=== PATIENT | female | born 1945 | race Caucasian/White ===

== ENCOUNTER → 2018-06-24 10:22 | Outpatient (CLI) | payer MEDICARE, SELFPAY ==
--- NOTE | 2018-06-24 | DI.MG.S_ITS ---
BILATERAL DIGITAL SCREENING MAMMOGRAM 3D/2D WITH CAD: 06/24/2018 CLINICAL: Routine screening. Comparison is made to exams dated: 10/20/2015 mammogram, 06/22/2013 mammogram, and 05/18/2011 mammogram - [facility]. There are scattered fibroglandular elements in both breasts. Current study was also evaluated with a Computer Aided Detection (CAD) system. No significant masses, calcifications, or other findings are seen in either breast. There has been no significant interval change. IMPRESSION: NEGATIVE There is no mammographic evidence of malignancy. A 1 year screening mammogram is recommended. This exam was interpreted at Station ID: [id number]. NOTE: For mammograms, a report in lay terms will be sent to the patient. Approximately 15% of breast malignancies will not be visualized mammographically. In the management of a palpable breast mass, a negative mammogram must not discourage biopsy of a clinically suspicious lesion. Electronically Signed By: Christiano viveros/hieu:06/26/2018 10:47:33 letter sent: Normal Exam ACR BI-RADS Category 1: Negative 3341F
[2018-06-24 11:25] LABS: Alanine Aminotransferase 29 IU/L (9-52); Aspartate Aminotransferase 24 IU/L (14-36); BUN Creatinine Ratio 23.3 (6-22); Blood Urea Nitrogen 21 mg/dL (7-17); Calcium 10.1 mg/dL (8.4-10.2); Carbon Dioxide 29 mmol/L (22-32); Chloride 101 mmol/L (98-107); Cholesterol 217 mg/dL (140-199); Estimated Glomerular Filt Rate > 60.0 mL/min (>60); Glucose 120 mg/dL (80-110); HDL Cholesterol 84 mg/dL (40-60); HEMOLYSIS < 15 (0-50); LDL Cholesterol Calculated 114 mg/dL (<100); Potassium 4.1 mmol/L (3.4-5.1); Sodium 142 mmol/L (137-145); Triglycerides 97 mg/dL (35-150)
[2018-06-24 11:54] LABS: TSH w/ Reflex to FT4 2.38 uIU/mL (0.47-4.68)
== END ==
PROVIDERS: Family Provider Internal Medicine; PCP Internal Medicine; Visit Provider Internal Medicine
DX: Z12.31 Encounter for screening mammogram for malignant neoplasm of breast (principal); E78.00 Pure hypercholesterolemia, unspecified; E03.9 Hypothyroidism, unspecified; I10 Essential (primary) hypertension
CPT/HCPCS: 36415; 77063; 77067; 80048; 80061; 84443; 84450; 84460

== ENCOUNTER → 2018-10-13 14:00 | Outpatient (CLI) | payer MEDICARE, BC, SELFPAY ==
--- NOTE | 2018-10-13 | DI.MRI.S_ITS ---
PROCEDURE: MR LUMBAR SPINE WO CON INDICATIONS: Low back pain TECHNIQUE: Noncontrast sagittal T1 spin echo and T2 fast echo, coronal T2, sagittal STIR, axial T1 and T2 fast spin echo through the lumbar spine. COMPARISON: None. FINDINGS: Image quality: Excellent. Alignment and Curvature: No plain films are available for comparison, for numbering purposes. Thus, for the purposes of this examination, 5 lumbar type vertebral bodies will be presumed, as denoted on the montage panel. This should be confirmed and correlated with plain films, prior to any lumbar spinal intervention. There is severe leftward curvature of the upper lumbar spine. There is mild, grade 1 retrolisthesis of L5 on S1. Bone Marrow: Marrow is of normal overall signal. No acute vertebral body compression fractures. There is mild reactive signal within the endplates adjacent to the L2-L3, L3-L4, L4-L5, and L5-S1 intervertebral discs. Spinal Cord: The visualized cord is normal in size and signal intensity. Conus medullaris terminates at the lower L1 level. Paraspinous Soft Tissues: No paravertebral masses. L1-L2: Moderate disc desiccation. Mild diffuse disc bulge with superimposed small right paracentral protrusion. Mild facet and ligament flavum hypertrophy. Mild canal stenosis. Mild right foraminal stenosis. No left foraminal stenosis. L2-L3: Moderate disc height loss and desiccation. Mild diffuse disc bulge. Mild facet and ligamentum hypertrophy. Moderate epidural lipomatosis. Moderate to severe canal stenosis. Mild left and moderate right subarticular foraminal stenosis. L3-L4: Mild disc height loss and desiccation. Mild diffuse disc bulge. Mild facet hypertrophy bilaterally. Moderate canal stenosis. Moderate left and mild right foraminal stenosis. L4-L5: Moderate disc desiccation. Mild diffuse disc bulge with superimposed broad-based left far lateral protrusion. Mild facet hypertrophy. Mild canal stenosis. Mild right and moderate left subarticular foraminal stenosis. L5-S1: Moderate disc desiccation. Mild diffuse disc bulge. Moderate bilateral facet hypertrophy. Mild canal stenosis. Moderate right and severe left subarticular foraminal stenosis. Flattening of the left L5 nerve root. IMPRESSION: 1. 5 lumbar type vertebral bodies were presumed for the current report. Plain films of the lumbar spine are recommended for confirmation, prior to any lumbar spinal intervention. 2. Multilevel degenerative disc and facet disease, as well as ligamentum flavum hypertrophy and epidural lipomatosis. 3. Multilevel canal stenoses, worst at L2-L3, where there is moderate to severe canal stenosis. Moderate canal stenosis at L3-L4. 4. Multilevel foraminal stenoses, worse on the left at L5-S1 where there is associated L5 nerve root flattening. Recommend correlation with clinical symptoms to ascertain relevance of this finding. 5. Severe leftward curvature of the upper lumbar spine. Dictated by: Duy Duncan M.D. on 10/13/2018 at 15:19 Approved by: Duy Duncan M.D. on 10/13/2018 at 15:26
--- NOTE | 2019-01-24 | DI.CT.S_ITS ---
PROCEDURE: CT LUMBAR SPINE W CON COMPARISON: Thoracic spine CT myelography same date reviewed.. INDICATIONS: IDIOPATHIC SCOLIOSIS FINDINGS: There is a calculated 50.4? scoliosis convex leftward centered at the thoracolumbar junction/upper lumbar margin. This was measured during thoracic spine evaluation at 53?, within measurement variability. The injected intrathecal contrast traverses cephalad from the lumbosacral spine into the thoracic area. No compression fracture is found. Along the inner curvature (right side) of the barium dominant scoliotic distortion there is osteophytic spurring. Facet osteoarthritis also is greater along the inner curvature of from T12-L3. Asymmetric right-sided foraminal stenosis is present through these areas but no disc bulge or herniation is found. IMPRESSION: The scoliosis present is measured between 50 and 53? 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 Nerve root impingement along this area of the right side of the lumbosacral spine would be expected. No disc bulge or herniation is seen. No morphologic anomaly or soft tissue mass is identified as cause of the scoliosis present. Dictated by: Mata Ley M.D. on 01/24/2019 at 17:27 Approved by: Mata Ley M.D. on 01/24/2019 at 17:30
--- NOTE | 2019-01-24 11:15 | DI.CT.S_ITS ---
PROCEDURE: CT THORACIC SPINE W CON INDICATIONS: IDIOPATHIC SCOLIOSIS TECHNIQUE: After the administration of 10 mL intrathecal contrast, 3 mm thick sections acquired through the region of interest in the thoracic spine. Sagittal and coronal reformats were then constructed. For radiation dose reduction, the following was used: automated exposure control. COMPARISON: None. FINDINGS: Image quality: Excellent. Bones: There is 53 degree convex leftward scoliosis centered at the L1-2 level of the lumbosacral spine, and relatively minor compensatory convex rightward scoliosis at the lower third of the thoracic spine. No significant compression fractures found and the degree of anterior mild wedging of several of the low thoracic vertebral bodies is within the range of normal variation/Scheuermann's kyphosis. There is a inferior displacement of the upper endplate of L1, possibly an osteoporotic superior endplate impaction fracture from the past. Spinal cord: The spinal canal morphology results in rightward and leftward deviation of the cord within the spinal canal at the thoracolumbar junction but more superiorly it is midline given the absence of significant convex rightward scoliosis. Expected degenerative osteophytic spurring from endplates is seen along the inner curvature of the scoliotic distortion at the low thoracic and upper lumbosacral spine. Soft tissues: No soft tissue inflammation is seen. No mass is identified. IMPRESSION: The clinical diagnosis provided is idiopathic scoliosis, and not underlying neoplasm or spinal morphologic anomaly is seen that would explain the scoliosis seen. There is 53? convex leftward scoliosis centered at the upper lumbosacral spine/thoracolumbar junction but above that level the thoracic spine is nearly free of scoliotic distortion. There is mild to moderate degenerative osteophytic spurring as expected along the inner curvature of the area of maximal scoliosis. Note is made of a small area of right lateral posterior disc bulging at the thoracolumbar junction but this is not associated with focal nerve root impingement or evidence of disc herniation. Dictated by: Mata Ley M.D. on 01/24/2019 at 17:15 Approved by: Mata Ley M.D. on 01/24/2019 at 17:24
== END ==
PROVIDERS: PCP Internal Medicine; Visit Provider Orthopaedic Surgery
DX: M54.5 Low back pain (principal); M51.36 Other intervertebral disc degeneration, lumbar region; M51.37 Other intervertebral disc degeneration, lumbosacral region; M48.061 Spinal stenosis, lumbar region without neurogenic claudication; M48.07 Spinal stenosis, lumbosacral region; E88.2 Lipomatosis, not elsewhere classified
CPT/HCPCS: 72148

== ENCOUNTER → 2019-01-11 09:54 | Outpatient (CLI) | payer MEDICARE, BC, SELFPAY ==
[2019-01-11 12:33] LABS: Alanine Aminotransferase 33 IU/L (9-52); Aspartate Aminotransferase 30 IU/L (14-36); Cholesterol 201 mg/dL (140-199); HDL Cholesterol 82 mg/dL (40-60); LDL Cholesterol Calculated 107 mg/dL (<100); Triglycerides 59 mg/dL (35-150)
== END ==
PROVIDERS: PCP Internal Medicine; Visit Provider Internal Medicine
DX: M85.852 Other specified disorders of bone density and structure, left thigh (principal); Z78.0 Asymptomatic menopausal state; E07.9 Disorder of thyroid, unspecified; E78.00 Pure hypercholesterolemia, unspecified; Z82.62 Family history of osteoporosis; Z90.722 Acquired absence of ovaries, bilateral
CPT/HCPCS: 36415; 77080; 77081; 80061; 84450; 84460

== ENCOUNTER 2019-01-24 09:03 | Day surgery (SDC) | payer MEDICARE, BC, SELFPAY ==
[2019-01-24] VITALS (11 sets, daily range): BP systolic 121–157; BP diastolic 52–82; PULSE 53–81; RESP 14–17; TEMP 36.5–36.7; O2SAT 94–100; BMI 24.8
--- NOTE | 2019-01-24 | DI.RAD.S_ITS ---
PROCEDURE: FL INJECT SPINE FOR CT MYELO INDICATIONS: Adolescent idiopathic scoliosis thoracolumbar TECHNIQUE: The indications, alternatives, benefits, risks and complications of the procedure were explained to the patient. Written informed consent was obtained and placed in the chart. The patient was placed in a prone position on the fluoroscopy table, and a level was chosen for percutaneous access under fluoroscopic guidance. The skin was prepped and draped in a sterile fashion. After local anaesthetic, a spinal needle was then used to enter the intrathecal space, with return of clear cerebrospinal fluid. 15 mL of Isovue M-200 were administered intrathecally under fluoroscopic visualization. The needle was then withdrawn, and a bandage applied to the puncture site. Fluoroscopic spot films were then acquired in various positions. FINDINGS: Standing frontal, lateral, and oblique views demonstrate no significant central canal stenoses. Access level: Right interlaminar notch L3-4 level Medications: 1% lidocaine for local anaesthesia. Complications: None. Patient was transferred to CT for subsequent CT myelogram. IMPRESSION: Successful fluoroscopically guided administration of iodinated contrast into the lumbar spine central canal for subsequent CT myelogram scheduled for both thoracic and lumbosacral regions. Dictated by: Mata Ley M.D. on 01/24/2019 at 11:55 Approved by: Mata Ley M.D. on 01/24/2019 at 11:55
[2019-01-24 09:34] LABS: Platelet Count 250 X10^3/uL (150-400)
[2019-01-24 09:43] LABS: INR 0.9 (0.9-1.3); Prothrombin Time 10.4 SECONDS (10.1-12.7)
[2019-01-24 09:45] LABS: PTT Partial Thromboplastin Tim 41 SECONDS (26.4-36.2)
--- NOTE | 2019-01-24 11:15 | SUR.PHASEII ---
pt returned from procedure via stretcher. pt laying in bed with pillow under head. pt alert and orientated. pt reports ache pain 0.5/10 in back and reports this is tolerable at this time. Band-aid on back observed to be c/d/i. bed in lowest position and call light given to pt. pt family brought to bedside. pt appears comfortable at this time.
== END 2019-01-24 14:29 | disposition home or self-care (01) ==
PROVIDERS: PCP Internal Medicine; Visit Provider Orthopaedic Surgery
DX: M41.125 Adolescent idiopathic scoliosis, thoracolumbar region (principal); Z01.818 Encounter for other preprocedural examination; M47.16 Other spondylosis with myelopathy, lumbar region; M41.55 Other secondary scoliosis, thoracolumbar region; R60.9 Edema, unspecified; M41.25 Other idiopathic scoliosis, thoracolumbar region; I10 Essential (primary) hypertension; E03.9 Hypothyroidism, unspecified; F32.9 Major depressive disorder, single episode, unspecified
CPT/HCPCS: 36415; 62284; 72129; 72132; 77003; 85049; 85610; 85730

== ENCOUNTER → 2019-06-13 18:50 | Outpatient (ROUT) | payer MEDICARE, BC, SELFPAY ==
[2019-06-13 19:17] LABS: Alanine Aminotransferase 22 IU/L (<35); Aspartate Aminotransferase 28 IU/L (14-36); Blood Urea Nitrogen 22 mg/dL (7-17); Calcium 10.7 mg/dL (8.4-10.2); Carbon Dioxide 30 mmol/L (22-32); Chloride 99 mmol/L (98-107); Cholesterol 224 mg/dL (140-199); Estimated Glomerular Filt Rate 54.3 mL/min (>60); Glucose 107 mg/dL (80-110); HDL Cholesterol 75 mg/dL (40-60); HEMOLYSIS < 15 (0-50); LDL Cholesterol Calculated 129 mg/dL (<100); Potassium 4.2 mmol/L (3.4-5.1); Sodium 138 mmol/L (137-145); Triglycerides 99 mg/dL (35-150)
[2019-06-13 19:48] LABS: TSH w/ Reflex to FT4 2.14 uIU/mL (0.47-4.68)
== END ==
PROVIDERS: PCP Internal Medicine; Visit Provider Internal Medicine
DX: I10 Essential (primary) hypertension (principal); E78.00 Pure hypercholesterolemia, unspecified; E03.9 Hypothyroidism, unspecified
CPT/HCPCS: 80048; 80061; 84443; 84450; 84460

== ENCOUNTER → 2020-04-02 13:27 | Outpatient (CLI) | payer MEDICARE, BC, SELFPAY ==
[2020-04-02 15:06] LABS: Alanine Aminotransferase 32 IU/L (<35); Albumin 4.9 g/dL (3.5-5.0); Albumin Globulin Ratio 1.8 (1.0-2.8); Alkaline Phosphatase 108 U/L (38-126); Aspartate Aminotransferase 37 IU/L (14-36); BUN Creatinine Ratio 20.2 (6-22); Bilirubin Total 0.5 mg/dL (0.2-1.3); Blood Urea Nitrogen 24 mg/dL (7-17); Calcium 10.4 mg/dL (8.4-10.2); Carbon Dioxide 28 mmol/L (22-32); Chloride 101 mmol/L (98-107); Cholesterol 240 mg/dL (140-199); Estimated Glomerular Filt Rate 44.3 mL/min (>60); Globulin 2.8 g/dL (1.7-4.1); Glucose 108 mg/dL (80-110); HDL Cholesterol 85 mg/dL (40-60); HEMOLYSIS < 15 (0-50); LDL Cholesterol Calculated 132 mg/dL (<100); Potassium 4.7 mmol/L (3.4-5.1); Sodium 138 mmol/L (137-145); Total Protein 7.7 g/dL (6.3-8.2); Triglycerides 115 mg/dL (35-150)
== END ==
PROVIDERS: PCP Internal Medicine; Referring Provider Internal Medicine; Visit Provider Internal Medicine
DX: I10 Essential (primary) hypertension (principal); E78.00 Pure hypercholesterolemia, unspecified
CPT/HCPCS: 36415; 80053; 80061

== ENCOUNTER → 2020-04-08 16:01 | Outpatient (CLI) | payer MEDICARE, BC, SELFPAY ==
--- NOTE | 2020-04-08 16:14 | DI.MG.S_ITS ---
Patient Name: CHIP SHOOK date: 1945 Sex: F Attending Physician: Benigno Indications: Date: 04/08/2020 16:07 At the request of: MONIQUE PATE Procedure: MM screening mammo BI BILATERAL DIGITAL SCREENING MAMMOGRAM 3D/2D WITH CAD: 04/08/2020 CLINICAL: Routine screening. Comparison is made to exams dated: 06/24/2018 mammogram, 10/20/2015 mammogram, and 06/22/2013 mammogram - [facility]. There are scattered fibroglandular elements in both breasts. Current study was also evaluated with a Computer Aided Detection (CAD) system. No significant masses, calcifications, or other findings are seen in either breast. There has been no significant interval change. IMPRESSION: NEGATIVE There is no mammographic evidence of malignancy. A 1 year screening mammogram is recommended. This exam was interpreted at Station ID: [id number]. NOTE: For mammograms, a report in lay terms will be sent to the patient. Approximately 15% of breast malignancies will not be visualized mammographically. In the management of a palpable breast mass, a negative mammogram must not discourage biopsy of a clinically suspicious lesion. Electronically Signed By: James schafer/hieu:04/08/2020 18:04:52 letter sent: Normal Exam ACR BI-RADS Category 1: Negative 3341F
== END ==
PROVIDERS: PCP Internal Medicine; Referring Provider Internal Medicine; Visit Provider Internal Medicine
DX: Z12.31 Encounter for screening mammogram for malignant neoplasm of breast (principal)
CPT/HCPCS: 77063; 77067

== ENCOUNTER → 2020-10-03 15:34 | Outpatient (CLI) | payer MEDICARE, BC, SELFPAY ==
[2020-10-03 16:26] LABS: Alanine Aminotransferase 26 IU/L (<35); Albumin 4.7 g/dL (3.5-5.0); Albumin Globulin Ratio 1.9 (1.0-2.8); Alkaline Phosphatase 88 U/L (38-126); Aspartate Aminotransferase 32 IU/L (14-36); BUN Creatinine Ratio 24.2 (6-22); Bilirubin Total 0.4 mg/dL (0.2-1.3); Blood Urea Nitrogen 24 mg/dL (7-17); Calcium 10.4 mg/dL (8.4-10.2); Carbon Dioxide 29 mmol/L (22-32); Chloride 102 mmol/L (98-107); Cholesterol 180 mg/dL (140-199); Estimated Glomerular Filt Rate 54.8 mL/min (>60); Globulin 2.5 g/dL (1.7-4.1); Glucose 95 mg/dL (80-110); HDL Cholesterol 71 mg/dL (40-60); HEMOLYSIS < 15 (0-50); LDL Cholesterol Calculated 92 mg/dL (<100); Potassium 4.5 mmol/L (3.4-5.1); Sodium 137 mmol/L (137-145); Total Protein 7.2 g/dL (6.3-8.2); Triglycerides 87 mg/dL (35-150)
== END ==
PROVIDERS: PCP Internal Medicine; Referring Provider Internal Medicine; Visit Provider Internal Medicine
DX: I10 Essential (primary) hypertension (principal); E78.00 Pure hypercholesterolemia, unspecified
CPT/HCPCS: 36415; 80053; 80061

== ENCOUNTER → 2021-05-22 17:25 | Outpatient (CLI) | payer MEDICARE, BC, SELFPAY ==
--- NOTE | 2021-05-22 17:28 | DI.MG.S_ITS ---
BILATERAL DIGITAL SCREENING MAMMOGRAM 3D/2D WITH CAD: 05/22/2021 CLINICAL: Routine screening. Comparison is made to exams dated: 04/08/2020 mammogram, 06/24/2018 mammogram, and 10/20/2015 mammogram - [facility]. There are scattered fibroglandular elements in both breasts. Current study was also evaluated with a Computer Aided Detection (CAD) system. There is a possible new 0.3 cm oval equal density asymmetry in the right breast middle depth medial region seen on the craniocaudal view only. No other significant masses, calcifications, or other findings are seen in either breast. IMPRESSION: INCOMPLETE: NEEDS ADDITIONAL IMAGING EVALUATION The possible new 0.3 cm oval equal density asymmetry in the right breast resembles a cyst or a lymph node and is indeterminate. Additional views with possible ultrasound are recommended. This exam was interpreted at Station ID: [id number]. NOTE: For mammograms, a report in lay terms will be sent to the patient. Approximately 15% of breast malignancies will not be visualized mammographically. In the management of a palpable breast mass, a negative mammogram must not discourage biopsy of a clinically suspicious lesion. Electronically Signed By: James schafer/hieu:05/25/2021 08:03:11 letter sent: Additional Imaging Needed ACR BI-RADS Category 0: Incomplete 3340F
== END ==
PROVIDERS: PCP Internal Medicine; Referring Provider Internal Medicine; Visit Provider Internal Medicine
DX: Z12.31 Encounter for screening mammogram for malignant neoplasm of breast (principal)
CPT/HCPCS: 77063; 77067

== ENCOUNTER → 2021-06-30 12:34 | Outpatient (CLI) | payer MEDICARE, BC, SELFPAY ==
--- NOTE | 2021-06-30 | DI.MG.S_ITS ---
UNILATERAL RIGHT DIGITAL DIAGNOSTIC MAMMOGRAM 3D/2D WITH ADDITIONAL VIEWS: 06/30/2021 CLINICAL: Additional evaluation requested from prior study. Comparison is made to exams dated: 05/22/2021 mammogram, 04/08/2020 mammogram, and 06/24/2018 mammogram - [facility]. There are scattered fibroglandular elements in right breast. There is a 0.4 cm oval equal density focal asymmetry in the right breast central to the nipple middle depth. This is seen in additional views. No other significant masses or calcifications are seen in the breast. IMPRESSION: INCOMPLETE: NEEDS ADDITIONAL IMAGING EVALUATION The 0.4 cm oval equal density focal asymmetry in the right breast resembles a cyst or a lymph node and is indeterminate. An ultrasound is recommended for further evaluation and is scheduled to immediately follow this examination. This exam was interpreted at Station ID: [id number]. NOTE: For mammograms, a report in lay terms will be sent to the patient. Approximately 15% of breast malignancies will not be visualized mammographically. In the management of a palpable breast mass, a negative mammogram must not discourage biopsy of a clinically suspicious lesion. Electronically Signed By: James Bauman M.D. aty/:06/30/2021 13:00:49 ACR BI-RADS Category 0: Incomplete 3340F
--- NOTE | 2021-06-30 | DI.US.S_ITS ---
ULTRASOUND OF RIGHT BREAST: 06/30/2021 CLINICAL: Patient returns today to evaluate a focal asymmetry in the right breast. Comparison is made to exams dated: 06/30/2021 mammogram, 05/22/2021 mammogram, 04/08/2020 mammogram, 06/24/2018 mammogram, 10/20/2015 mammogram, and 05/18/2011 mammogram - [facility]. Color flow and real-time ultrasound of the right breast were performed. Nunez scale images of the real-time examination were reviewed. There is a 0.4 cm x 0.3 cm x 0.3 cm oval cyst in the right breast central to the nipple posterior depth. This oval cyst is hypoechoic with internal echoes. This likely correlates with mammography findings. Color flow imaging demonstrates that there is no vascularity present. IMPRESSION: PROBABLY BENIGN The 0.4 cm x 0.3 cm x 0.3 cm oval cyst in the right breast most likely is a complicated cyst and is probably benign. A follow-up right ultrasound in 6 months is recommended to demonstrate stability. Findings and recommendations were conveyed to the patient during today's evaluation. This exam was interpreted at Station ID: [id number]. Electronically Signed By: James Bauman M.D. aty/:06/30/2021 13:48:34 letter sent: Followup Recommended Ultrasound BI-RADS: 3 Probably benign
== END ==
PROVIDERS: PCP Internal Medicine; Referring Provider Internal Medicine; Visit Provider Internal Medicine
DX: R92.8 Other abnormal and inconclusive findings on diagnostic imaging of breast (principal); N60.01 Solitary cyst of right breast
CPT/HCPCS: 76642; 77065; G0279

== ENCOUNTER → 2022-01-01 08:08 | Outpatient (CLI) | payer MEDICARE, BC, SELFPAY ==
--- NOTE | 2022-01-01 | DI.US.S_ITS ---
LIMITED ULTRASOUND OF RIGHT BREAST: 01/01/2022 CLINICAL: 6 month follow-up of right breast cyst. Comparison is made to exams dated: 06/30/2021 ultrasound, 06/30/2021 mammogram, 05/22/2021 mammogram, and 04/08/2020 mammogram - [facility]. Color flow and real-time ultrasound of the right breast retroareolar were performed. Nunez scale images of the real-time examination were reviewed. There is a 0.4 cm x 0.3 cm x 0.3 cm oval cyst in the right breast central to the nipple posterior depth. This oval cyst is hypoechoic with internal echoes. This correlates with mammography findings. Color flow imaging demonstrates that there is no vascularity present. There also is a stable benign 0.4 cm x 0.3 cm x 0.3 cm oval cyst in the right breast central to the nipple posterior depth. This oval cyst is hypoechoic with internal echoes. Color flow imaging demonstrates that there is no vascularity present. IMPRESSION: PROBABLY BENIGN The 0.4 cm x 0.3 cm x 0.3 cm oval cyst in the right breast central to the nipple posterior depth most likely is a complicated cyst and is probably benign. The stable 0.4 cm x 0.3 cm x 0.3 cm oval cyst in the right breast central to the nipple posterior depth most likely is a complicated cyst and is benign. Return to annual mammogram screening schedule is recommended. This exam was interpreted at Station ID: [id number]. Electronically Signed By: Jim Hickey M.D. jr/:01/04/2022 11:30:23 letter sent: Normal Exam Ultrasound BI-RADS: 3 Probably benign
== END ==
PROVIDERS: PCP Internal Medicine; Referring Provider Internal Medicine; Visit Provider Internal Medicine
DX: R92.8 Other abnormal and inconclusive findings on diagnostic imaging of breast (principal); N60.01 Solitary cyst of right breast
CPT/HCPCS: 76642

== ENCOUNTER → 2022-06-09 16:18 | Outpatient (CLI) | payer MEDICARE, BC, SELFPAY ==
--- NOTE | 2022-06-09 16:19 | DI.MG.S_ITS ---
BILATERAL DIGITAL SCREENING MAMMOGRAM 3D/2D WITH CAD: 06/09/2022 CLINICAL: Routine screening. Comparison is made to exams dated: 05/22/2021 mammogram, 04/08/2020 mammogram, and 06/24/2018 mammogram - [facility]. There are scattered areas of fibroglandular density in both breasts (category b / 25%-50% glandular tissue). Current study was also evaluated with a Computer Aided Detection (CAD) system. No significant masses, calcifications, or other findings are seen in either breast. There has been no significant interval change. IMPRESSION: NEGATIVE There is no mammographic evidence of malignancy. A 1 year screening mammogram is recommended. Based on the Tyrer Cuzick model (a risk assessment model) the patient's lifetime risk is 2.8% and her 10 year risk is 0.0%. According to the ACR, ACS, and NCCN guidelines, an annual breast MRI exam along with mammogram is recommended if the patient's lifetime risk is 20% or greater. This exam was interpreted at Station ID: [id number]. NOTE: For mammograms, a report in lay terms will be sent to the patient. Approximately 15% of breast malignancies will not be visualized mammographically. In the management of a palpable breast mass, a negative mammogram must not discourage biopsy of a clinically suspicious lesion. Electronically Signed By: James schafer/hieu:06/10/2022 08:09:31 letter sent: Normal Exam ACR BI-RADS Category 1: Negative 3341F
== END ==
PROVIDERS: Referring Provider Internal Medicine; Visit Provider Internal Medicine
DX: Z12.31 Encounter for screening mammogram for malignant neoplasm of breast (principal)
CPT/HCPCS: 77063; 77067

== ENCOUNTER → 2023-06-14 16:49 | Outpatient (CLI) | payer MEDICARE, BC, SELFPAY ==
--- NOTE | 2023-06-14 | DI.MG.S_ITS ---
BILATERAL DIGITAL SCREENING MAMMOGRAM 3D/2D WITH CAD: 06/14/2023 CLINICAL: Routine screening. Comparison is made to exams dated: 06/09/2022 mammogram, 06/30/2021 mammogram, 05/22/2021 mammogram, and 04/08/2020 mammogram - [facility]. There are scattered areas of fibroglandular density in both breasts (category b / 25%-50% glandular tissue). Current study was also evaluated with a Computer Aided Detection (CAD) system. No significant masses, calcifications, or other findings are seen in either breast. There has been no significant interval change. IMPRESSION: NEGATIVE There is no mammographic evidence of malignancy. A 1 year screening mammogram is recommended. Based on the Tyrer Cuzick model (a risk assessment model) the patient's lifetime risk is 2.5% and her 10 year risk is 0.0%. According to the ACR, ACS, and NCCN guidelines, an annual breast MRI exam along with mammogram is recommended if the patient's lifetime risk is 20% or greater. This exam was interpreted at Station ID: [id number]. NOTE: For mammograms, a report in lay terms will be sent to the patient. Approximately 15% of breast malignancies will not be visualized mammographically. In the management of a palpable breast mass, a negative mammogram must not discourage biopsy of a clinically suspicious lesion. Electronically Signed By: Best saavedra/hieu:06/15/2023 09:01:06 letter sent: Normal Exam ACR BI-RADS Category 1: Negative 3341F
== END ==
PROVIDERS: PCP Internal Medicine; Referring Provider Internal Medicine; Visit Provider Internal Medicine
DX: Z12.31 Encounter for screening mammogram for malignant neoplasm of breast (principal)
CPT/HCPCS: 77063; 77067

== ENCOUNTER → 2024-06-29 15:47 | Outpatient (CLI) | payer MEDICARE, BC, SELFPAY ==
--- NOTE | 2024-06-29 15:48 | DI.MG.S_ITS ---
BILATERAL DIGITAL SCREENING MAMMOGRAM 3D/2D WITH CAD: 06/29/2024 CLINICAL: Routine screening. Comparison is made to exams dated: 06/14/2023 mammogram, 06/09/2022 mammogram, and 05/22/2021 mammogram - [facility]. There are scattered areas of fibroglandular density (category b / 25%-50% glandular tissue). Current study was also evaluated with a Computer Aided Detection (CAD) system. No significant masses, calcifications, or other findings are seen in either breast. There has been no significant interval change. IMPRESSION: NEGATIVE There is no mammographic evidence of malignancy. A 1 year screening mammogram is recommended. Based on the Tyrer Cuzick model (a risk assessment model) the patient's lifetime risk is 2.3% and her 10 year risk is 0.0%. According to the ACR, ACS, and NCCN guidelines, an annual breast MRI exam along with mammogram is recommended if the patient's lifetime risk is 20% or greater. This exam was interpreted at Station ID: [id number]. NOTE: For mammograms, a report in lay terms will be sent to the patient. Approximately 15% of breast malignancies will not be visualized mammographically. In the management of a palpable breast mass, a negative mammogram must not discourage biopsy of a clinically suspicious lesion. Electronically Signed By: Jh loomis/hieu:06/29/2024 16:38:29 letter sent: Normal Exam ACR BI-RADS Category 1: Negative
== END ==
PROVIDERS: PCP Internal Medicine; Referring Provider Internal Medicine; Visit Provider Internal Medicine
DX: Z12.31 Encounter for screening mammogram for malignant neoplasm of breast (principal)
CPT/HCPCS: 77063; 77067

== ENCOUNTER → 2025-07-02 18:35 | Outpatient (CLI) | payer MEDICARE, BC, SELFPAY ==
--- NOTE | 2025-07-02 | DI.RAD.S_ITS ---
PROCEDURE: XR LUMBAR SPINE 2-3V INDICATIONS: back pain TECHNIQUE: 3 views of the lumbar spine were acquired. COMPARISON: CT 01/24/2019. FINDINGS: Bones: 5 nonrib-bearing vertebrae are present. No acute vertebral body compression fractures. Mild L2 superior endplate height loss of up to 5%. Anterior wedge compression deformity at T10 and T11 with 5-10% vertebral body height loss. These are age indeterminate but probably chronic. No suspicious bony lesions. Extensive posterior fusion extending from T10 to S1. Bilateral SI joint fusion noted. Hardware is intact. Mild levoscoliosis. No significant listhesis. Diffuse degenerative disc disease particularly in the mid lumbar spine. Soft tissues: Overlying bowel gas pattern is normal. No suspicious soft tissue calcifications. IMPRESSION: Osteopenia. Diffuse degenerative disc disease. No definite acute fracture. Extensive postoperative fusion. Dictated by: Africa Trinh M.D. on 07/03/2025 at 13:13 Approved by: Africa Trinh M.D. on 07/03/2025 at 13:15
== END ==
LOC: RAD 18:41
PROVIDERS: PCP Family Medicine; Referring Provider Physician Assistant; Visit Provider Physician Assistant
DX: M51.369 Other intervertebral disc degeneration, lumbar region without mention of lumbar back pain or lower extremity pain (principal); M85.88 Other specified disorders of bone density and structure, other site; M54.9 Dorsalgia, unspecified; M41.9 Scoliosis, unspecified; Z98.1 Arthrodesis status
CPT/HCPCS: 72100